=== PATIENT | female | born 1945 | race Caucasian/White ===

== ENCOUNTER 2020-02-28 11:24 | Outpatient (CLI) | payer MEDICARE, SELFPAY ==
--- NOTE | 2020-02-28 11:37 | CT_ITS ---
WS: [id number] CT LUMBAR SPINE, noncontrast. HISTORY: DEGENERATION OF LUMBAR INTERVERTEBRAL DISC TECHNIQUE: Contiguous 2.5 mm axial imaging are performed. Sagittal and coronal reformats are submitte d and reviewed. All CT scans at [facility] use at least one of these dose optimization te chniques: automated exposure control; mA and/or kV adjustment per patient size (includes targeted exa ms where dose is matched to clinical indication); or iterative reconstruction. IV contrast: None DLP: 1945.64 mGycm COMPARISON: 12/22/2011 L4 anterolisthesis by 2.9 mm. L1 compression fracture involving the superior endplate. Concave deformity in the superior endplate h as increased since 2011. There is no retropulsion. No acute fracture line. L1-2: Normal. L2-3: Mild annular disc bulging. Slightly asymmetric to the LEFT. L3-4: Diffuse asymmetric disc bulging to the LEFT. Mild encroachment upon the LEFT lateral thecal sac and foramen. No significant stenosis. L4-5: Moderate asymmetric disc bulging with deformity on the ventral thecal sac. Mild central and sub articular recess stenosis. Minimal narrowing of the RIGHT foramen. L5-S1: Central broad-based disc bulging without stenosis. Scattered calcifications within the abdominal aorta. Degenerative air in the SI joints bilaterally. CT/CT lumbar spine wo con* [id number] IMPRESSION: 1. L1 compression fracture near 50%. Mild progression of the compression fract ure since 2011. No retropulsion. 2. L4 anterolisthesis by 2.9 mm due to degenerative facet arthritis. 3. Mild central and subarticular recess stenosis at L4-5. 4. Mild asymmetric disc bulging at L2-3 and L3-4 to the LEFT.
--- NOTE | 2020-02-28 11:37 | CT_ITS ---
WS: [id number] CT THORACIC SPINE, noncontrast HISTORY: COMPRESSION FRACTURE TECHNIQUE: Contiguous 2.5 mm axial images are reviewed to thoracic spine. Images are reformatted in s agittal and coronal planes. All CT scans at [facility] use at least one of these dose opt imization techniques: automated exposure control; mA and/or kV adjustment per patient size (includes targeted exams where dose is matched to clinical indication); or iterative reconstruction. DLP: 885.14 mGycm COMPARISON: 12/22/2011 Normal posterior thoracic alignment. Chronic compression fracture at T11 approximately 20%. New mild compression deformities at T4 and T7. Anterior compression deformities by approximately 10%. T1-2: Normal. T2-3: Normal. T3-4: Normal. T4-5: Normal. T5-6: Normal. T6-7: Normal. T7-8: Normal. T8-9: Normal. T9-10: Normal. T10-11: Normal. T11-12: Normal. No significant disc protrusions or foraminal stenosis. CT/CT thoracic spin wo con* [id number] IMPRESSION: 1. No central or foraminal stenosis. 2. Remote T11 compression fracture 20%. 3. New since 2011 are mild anterior compression deformities at T4 and T7, age indeterminant. Approximately 10% compression fractures.
== END 2020-02-28 11:25 | disposition home or self-care (01) ==
LOC: RADWPI 11:34
PROVIDERS: Family Provider Family Medicine; PCP Family Medicine; Visit Provider Family Medicine
DX: M51.36 Other intervertebral disc degeneration, lumbar region (principal); S22.080A Wedge compression fracture of T11-T12 vertebra, initial encounter for closed fracture; M51.26 Other intervertebral disc displacement, lumbar region; M48.061 Spinal stenosis, lumbar region without neurogenic claudication; X58.XXXA Exposure to other specified factors, initial encounter
CPT/HCPCS: 72128; 72131

== ENCOUNTER 2020-04-12 07:40 | Outpatient (CLI) | payer MEDICARE, SELFPAY ==
--- NOTE | 2020-04-12 08:24 | XR_ITS ---
WS: [id number] RIGHT HIP HISTORY: PAIN IN RIGHT HIP COMPARISON: None available. Right hip: No acute fracture or dislocation. There are mild osteophytic ridging and joint space narro wing of the RIGHT hip. Inferior RIGHT SI joint is slightly narrowed. XR/XR hip RT 2-3V wo/w pel* [id number] IMPRESSION: 1. No hip fracture. 2. Mild RIGHT hip joint osteoarthritis.
--- NOTE | 2020-04-12 08:24 | XR_ITS ---
WS: [id number] RIGHT TIBIA-FIBULA 2 VIEWS HISTORY: PAIN IN RIGHT LEG COMPARISON: None available. Plate and screw fixation of the distal tibia and fibula. Hardware is intact. No lucency around the sc rews. Moderate narrowing of the tibiotalar joint space XR/XR tibia fibula RT 2V [id number] IMPRESSION: 1. ORIF distal tibia and fibula. No acute fracture. 2. Moderate degenerative osteoarthritis at the tibiotalar joint space.
--- NOTE | 2020-04-12 08:24 | XR_ITS ---
WS: [id number] LUMBAR SPINE: 3 VIEWS TECHNIQUE: AP, lateral and L5-S1 spot. HISTORY: LOW BACK PAIN COMPARISON: 02/28/2020 Compression fracture of L1 by 20% is stable. L4 anterolisthesis by 5 mm. Facet joint arthritis is mod erate at L4-5 and L5-S1. Disc spaces are well preserved. Mild bilateral SI joint narrowing. XR/XR lumbar spine 2-3V* [id number] IMPRESSION: 1. Stable L1 compression fracture by 20% since 02/28/2020. 2. L4 anterolisthesis by 5 mm.
== END 2020-04-12 07:41 | disposition home or self-care (01) ==
PROVIDERS: Family Provider Family Medicine; PCP Family Medicine; Visit Provider Nurse Practitioner
DX: M79.604 Pain in right leg (principal); M54.5 Low back pain; M19.09 Primary osteoarthritis, other specified site; S32.010A Wedge compression fracture of first lumbar vertebra, initial encounter for closed fracture; X58.XXXA Exposure to other specified factors, initial encounter; M16.11 Unilateral primary osteoarthritis, right hip
CPT/HCPCS: 72100; 73502; 73590

== ENCOUNTER 2020-07-13 18:09 | Observation (INO) | payer MEDICARE, OTHER, SELFPAY ==
[2020-07-13] VITALS (11 sets, daily range): BP systolic 127–171; BP diastolic 65–102; PULSE 70–90; RESP 12–18; TEMP 36.9; O2SAT 95–100; BMI 22.7
--- NOTE | 2020-07-13 18:26 | ED_ITS ---
HPI - Chest Pain General: Chief Complaint: Chest Pain Stated Complaint: Chest Pain/Numbness & Pain in Left Arm/Neck Time Seen by Provider: 07/13/20 18:21 Source: patient Mode of arrival: ambulatory Limitations: no limitations History of Present Illness: HPI narrative: 75-year-old female states she had chest pain in her left chest that started today. Patient states pain is sharp in nature and rates it a 6 out of 10. She states she has had some tingling in her left arm along with pain that radiates to the arm. complaint: chest pain Onset (ago): hour(s) Timing of current episode: episodic Prior episodes: No Onset: during rest Pain location: left chest Pain radiation: left arm Severity: moderate Quality: aching Relieving factors: nothing Exacerbating factors: nothing Associated symptoms: Deny abdominal pain, dyspnea, fever(s), nausea or vomiting Review of Systems Const: Denies: fever(s), chills, body aches or change in appetite Eyes: Denies: blurry vision or eye discomfort ENMT: Denies: throat pain or dental pain Card: Denies: chest pain Resp: Denies: dyspnea GI: Denies: abdominal pain, nausea, vomiting or diarrhea : Denies: dysuria Musc: Denies: neck pain or back pain Skin/Breast: Denies: rash Neuro: Denies: headache(s) Psych: Denies: depression Matteo/Lymph: Denies: easy bruising All/Imm: Denies: urticaria PFSH ED PFSH: Medical History (Updated 07/13/20 @ 20:29 by Geneva García MD) Depression Diabetes Hypertension Surgical History (Updated 07/13/20 @ 20:12 by Karen Guevara MD) S/P right knee arthroscopy Physical Exam Const: COMMON NORMALS: no acute distress, patient oriented x3 and healthy appearing HENMT: COMMON NORMALS: normocephalic and atraumatic HEAD & SCALP: normocephalic and atraumatic Eye: COMMON NORMALS: Equal, round and reactive pupils present and EOMs intact bilaterally PUPIL: Yes Equal, round and reactive pupils present Neck/C-Spine: COMMON NORMALS: full ROM and supple Chest: COMMONS NORMALS: normal inspection of the chest and normal palpation of entire chest wall Resp: COMMON NORMALS: normal respiratory effort, No retractions, No use of accessory muscles and clear to auscultation bilaterally AUSCULTATION: clear to auscultation bilaterally Cardio: COMMON NORMALS: regular rate, regular rhythm and No murmurs present (Cardio) RATE: regular rate RHYTHM: regular rhythm GI: COMMON NORMALS: Normal to inspection, nondistended, normoactive bowel sounds present, Soft to palpation, non-tender and no masses PALPATION: Yes Soft to palpation Extremity: COMMON NORMALS: normal to inspection and full ROM Neuro: COMMON NORMALS: patient oriented x3, moves all extremities and no focal motor deficits Psych: COMMON NORMALS: mental status grossly normal, Normal thought process present and cooperative THOUGHT PROCESS: Normal thought process present Skin: COMMON NORMALS: no rashes or lesions noted and no wounds GENERAL SKIN EXAM: no rashes or lesions noted Course Vital Signs: Vital signs: Vital Signs Pulse Rate 79 07/13/20 20:04 Respiratory Rate 17 07/13/20 20:04 Blood Pressure 139/70 07/13/20 20:04 Pulse Oximetry 97 07/13/20 20:04 MDM - Chest Pain MDM Narrative: Medical decision making narrative: Patient presents here with chest pain. Her initial troponin and EKG are both normal. Her pain is typical though and she does have a history of hyperglycemia and high blood pressure I spoke to her at length and will admit her for observation due to her risk factors. She has no signs of pulmonary embolism or aortic dissection. Lab Data: Labs: Lab Results 07/13/20 07/13/20 07/13/20 Range/Units 18:30 18:30 18:36 WBC 8.3 (4.0-10.0) 10^3/ uL RBC 3.96 L (4.1-5.3) 10^6/u L Hgb 12.3 (11.5-15.3) g/dL Hct 37.0 (37.0-47.0) % MCV 93.4 (81-99) fL MCH 31.1 (28.0-34.0) pg MCHC 33.2 (30.0-36.0) g/dL RDW 11.4 L (12.1-15.1) % Plt Count 238 (130-400) 10^3/c mm MPV 9.4 (7.4-10.4) fL Neut % (Auto) 31.7 % Lymph % (Auto) 61.4 % [place] % (Auto) 4.5 % Eos % (Auto) 1.7 % Baso % (Auto) 0.6 % Neut # (Auto) 2.63 (1.8-7.7) 10^3/u L Lymph # (Auto) 5.1 H (0.8-4.8) 10^3/u L [place] # (Auto) 0.4 (0.2-0.9) 10^3/u L Eos # (Auto) 0.1 (0.0-0.8) 10^3/u L Baso # (Auto) 0.1 (0.0-0.1) 10^3/u L Nucleated RBC % (a uto) 0 % Nucleated RBCs # 0.0 /100WBC Sodium 141 (136-145) mmol/L Potassium 4.4 (3.5-5.1) mmol/L Chloride 105 (98-107) mmol/L Carbon Dioxide 25 (22-29) mmol/L Anion Gap 15.4 (5-19) BUN 24 H (8-23) mg/dL Creatinine 1.0 H (0.5-0.9) mg/dL GFR Calculation Not Reportable Glucose 131 H (65-115) mg/dL Calculated Osmolal ity 298 H (285-295) mOsm/k g Calcium 9.2 (8.5-10.5) mg/dL Total Bilirubin 0.4 (0.15-1.2) mg/dL AST 14 (0-32) U/L ALT 20 (0-33) U/L Alkaline Phosphata se 75 (35-105) IU/L Troponin T Baselin e 6 (0-10) ng/L Total Protein 7.1 (6.6-8.7) g/dL Albumin 4.2 (3.5-5.2) g/dL Globulin 2.9 (1.3-4.6) g/dL Imaging Data^: CXR: Attestation: I personally reviewed and interpreted this imaging study as follows: My impression: no acute abnormality EKG Data^: EKG 1: Attestation: I personally reviewed and interpreted this EKG as follows: EKG interpretation date: 07/13/20 EKG interpretation time: 18:18 Interpretation: nsr hr [address] or t wave abnormalities qrs 86 qtc 380 Discharge Plan Discharge Patient Disposition: Admitted As Inpatient Clinical Impression: Chest pain Qualifiers: Chest pain type: unspecified Qualified Code(s): R07.9 - Chest pain, unspecified Condition: Stable Coding Level of Care Code ED 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
--- NOTE | 2020-07-13 18:35 | XRR_ITS ---
PROCEDURE INFORMATION: Exam: XR Chest, 1 View Exam date and time: 07/13/2020 6:37 PM Age: 75 years old Clinical indication: Chest pain; Additional info: Cp TECHNIQUE: Imaging protocol: XR of the chest Views: 1 view. COMPARISON: No relevant prior studies available. FINDINGS: Lungs: Unremarkable. No consolidation. Pleural space: Unremarkable. No pleural effusion. No pneumothorax. Heart/Mediastinum: Unremarkable. No cardiomegaly. Bones/joints: Unremarkable. XR/XR chest 1V portable [id number] IMPRESSION: No acute findings.
[2020-07-13 18:50] LABS: Basophils # 0.1 10^3/uL (0.0-0.1); Basophils % 0.6 %; Eosinophils # 0.1 10^3/uL (0.0-0.8); Eosinophils % 1.7 %; Hemoglobin 12.3 g/dL (11.5-15.3); Lymphocytes # 5.1 10^3/uL (0.8-4.8); Lymphocytes % 61.4 %; Mean Corpuscular HGB Conc 33.2 g/dL (30.0-36.0); Mean Corpuscular Hemoglobin 31.1 pg (28.0-34.0); Mean Corpuscular Volume 93.4 fL (81-99); Mean Platelet Volume 9.4 fL (7.4-10.4); Monocytes # 0.4 10^3/uL (0.2-0.9); Monocytes % 4.5 %; Neutrophils # 2.63 10^3/uL (1.8-7.7); Neutrophils % 31.7 %; Nucleated Red Blood Cells % 0 %; Platelet Count 238 10^3/cmm (130-400); Red Blood Count 3.96 10^6/uL (4.1-5.3); Red Cell Distribution Width 11.4 % (12.1-15.1); White Blood Count 8.3 10^3/uL (4.0-10.0)
[2020-07-13 19:01] LABS: Alanine Aminotransferase 20 U/L (0-33); Albumin Level 4.2 g/dL (3.5-5.2); Alkaline Phosphatase 75 IU/L (35-105); Anion Gap 15.4 (5-19); Aspartate Amino Transferase 14 U/L (0-32); Blood Urea Nitrogen 24 mg/dL (8-23); Calcium 9.2 mg/dL (8.5-10.5); Carbon Dioxide 25 mmol/L (22-29); Chloride 105 mmol/L (98-107); Globulin 2.9 g/dL (1.3-4.6); Glucose 131 mg/dL (65-115); Osmolality Calculated 298 mOsm/kg (285-295); Potassium 4.4 mmol/L (3.5-5.1); Sodium 141 mmol/L (136-145); Total Bilirubin 0.4 mg/dL (0.15-1.2); Total Protein 7.1 g/dL (6.6-8.7)
[2020-07-13 19:24] LABS: Troponin(5th) Baseline 6 ng/L (0-10)
[2020-07-13] MEDS: morphine 4 mg/mL SDV 1 mL IVP (20:02)
[2020-07-13] MEDS: ondansetron 2 mg/ML SDV 2 mL 4 MG IVP (20:02)
--- NOTE | 2020-07-13 20:09 | P.HP_ITS ---
Providers/Chief Complaint Primary Care Provider: Zbigniew Hernandez Chief Complaint: Chest Pain/Numbness & Pain in Left Arm/Neck History of Present Illness Jennifer Hughes is a 75 year old female who does not have significant coronary disease or TX history presented today with chief complaint of chest pain. Patient is stating that she was moving stove today when she started experiencing some discomfort on the left side of her chest, she took Flexeril and kept doing her work. Around 6:54 PM she started experiencing stabbing pain which was intermittent, it would last only few seconds, it would get worse on any kind of movement, it was reproducible, this pain was radiating towards her jaw and left arm and she also noticed some tingling of left hand. She did not notice any diaphoresis, vomiting, nausea. This pain does not aggravate on laying flat nor improves on leaning forward, does not go towards her shoulder blades. No recent fever, cough, shortness of breath. Diagnostics in the ER revealed normal hemodynamics, troponin not significantly high, chest x-ray unremarkable, no findings of TX on EKG, patient was symptom free at the time my evaluation with normal hemodynamics, Patient does have history of arthritis, chest pain was reproducible during my evaluation, she is able to pinpoint area of chest discomfort as well. Review of Systems Const: Reports: fatigue; Denies: fever(s), chills or body aches Eyes: Denies: change in vision ENMT: Denies: throat pain Card: Reports: chest pain; Denies: irregular heart rhythm, swelling of feet/ankles, pre-syncope, dyspnea on exertion or orthopnea Resp: Denies: dyspnea GI: Denies: abdominal pain : Denies: flank pain Musc: Denies: neck pain Skin/Breast: Denies: rash or pruritus Neuro: Denies: headache(s) Psych: Reports: anxiety and depression Endo: Denies: polyuria Matteo/Lymph: Denies: easy bruising All/Imm: Denies: urticaria Medications/Allergies Home Medications Medication Instructions Recorded Confirmed Last Taken Type BuSpar 1 tab PO DAILY@0700 07/13/20 07/13/20 07/13/20 History bupropion HCl 1 tab PO DAILY@0700 07/13/20 07/13/20 07/13/20 History meloxicam 1 tab PO DAILY@0700 01/07/13/20 07/13/20 History metformin 1,000 mg PO BID@0700,2100 07/13/20 07/13/20 07/13/20 History olmesartan 1 tab PO DAILY@0700 07/13/20 07/13/20 07/13/20 History oxycodone-acetaminophen 1 tab PO Q8H PRN 07/13/20 07/13/20 Unknown History thyroid 1 tab PO DAILY@0700 07/13/20 07/13/20 07/13/20 History Allergies Allergy/AdvReac Type Severity Reaction Status Date / Time levofloxacin [From Levaquin] Allergy ALGY-Hives Verified 07/13/20 18:25 iodine contrast media Allergy ALGY-Redness Uncoded 07/13/20 18:25 of Skin PFSH Acute PFSH: Medical History Depression Diabetes Hypertension Subarachnoid hemorrhage In remote past secondary to hypertensive urgency during air travel Surgical History H/O: hysterectomy History of carpal tunnel surgery History of open reduction and internal fixation (ORIF) procedure Right ankle History of tonsillectomy Hx of adenoidectomy S/P right knee arthroscopy Family History Other Family history non-contributory Social History Smoking and tobacco status: never smoked Substance/Drug Use: never Household members: spouse Housing: House Current occupational status: retired 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 Vitals/I&O/Wt Last Vital Signs Pulse 79 07/13/20 20:04 Resp 17 07/13/20 20:04 BP 139/70 07/13/20 20:04 Pulse Ox 97 07/13/20 20:04 Weight last 48 hrs Weight 65.771 kg Physical Exam Narrative: EXAM NARRATIVE: Very pleasant elderly female Laying comfortable in her bed when I entered the room Symptom-free Hemodynamically stable Saturating well on room air Appears stated age Patient looks dehydrated or fluid overloaded S1, S2 sinus rhythm no heart murmur appreciated No acute respite distress Abdomen soft nontender bowel sounds present No extremity no edema gangrene ulcer Multiple skin tattoos Surgical scar noticed on the right ankle Neurologically nonfocal deficit GCS 15 Awake alert oriented x3 Appropriate mood and affect Chest pain is reproducible Data : 07/13/20 18:30 07/13/20 18:30 A&P Assessment and plan (1) Atypical chest pain: Atypical chest pain Patient symptoms started after recent activity when she was moving a stove in her home, she also took Flexeril, has history of arthritis, EKG did not show significant changes, troponin not significantly high patient is symptom-free at the time of my evaluation, I would request echo in the morning to rule out wall motion abnormality, if that does not show any pathological findings most likely her pain is secondary to costochondritis versus muscle sprain due to recent activity Considering her history of hypertension, diabetes I have counseled her to get outpatient stress test as well Would request lipid panel, TSH Status: Acute Additional A&P Information DVT prophylaxis Lovenox Cardiac diet Type 2 diabetes: Insulin moderate sliding scale Costochondritis: We will give her 1 dose of ketorolac Hypothyroidism: Check TSH, continue home regimen of levothyroxine Full code Attestations Medical Necessity Statement*: Anticipating discharge in less than 48 hours she needs overnight monitoring because of her risk factors for coronary disease will request echo in the morning, need serial troponin and EKG Time Spent in Patient Care: (>than 50% of time spent in counselling and/or direct pt care on unit) . 45mins Coding Level of Care Code Acute Fishing Accessories Maker for Chg Fwd Diagnoses Atypical chest pain R07.89
--- NOTE | 2020-07-13 20:36 | ECG_ITS ---
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
[2020-07-13 20:56] LABS: Troponin 5 2HR Delta 0 ABS# (0-10)
[2020-07-13 21:05] LABS: D Dimer 1.74 ug/mIFEU (0-0.59)
[2020-07-13 23:16] LABS: Chol HDL Ratio 4.51 mg/dL (0.0-4.40); Cholesterol 185 mg/dL (0-200); HDL Cholesterol 41 mg/dL (60-100); LDL Cholesterol Calculated 88 mg/dL (50-129); LDL HDL Ratio 2.15 RATIO (0.00-3.22); Thyroid Stimulating Hormone 1.19 uIU/mL (0.27-4.20); Triglycerides 278 mg/dL (0-150)
[2020-07-14] VITALS (22 sets, daily range): BP systolic 116–164; BP diastolic 59–79; PULSE 68–79; RESP 12–27; TEMP 35.7–36.6; O2SAT 94–98
[2020-07-14] MEDS: ketorolac 30 mg/mL INJ 15 MG IVP (01:22)
[2020-07-14] MEDS: enoxaparin 40 mg/0.4 mL Syringe SUBCUT (01:23)
[2020-07-14] MEDS: oxyCODONE-APAP 10-325 mg Tablet 1 TAB PO (02:05)
[2020-07-14 02:46] LABS: Troponin 5 6HR Delta 0 ng/L (0-12)
--- NOTE | 2020-07-14 06:20 | PC.NURSE ---
Attempted to call patient's - Ambros and get dosage information for patient's Olmesartan and Thyroid pills as patient does not remember. Voicemail left to return a call to the Cardiac Stepdown Unit.
--- NOTE | 2020-07-14 06:50 | PC.NURSE ---
Report to Meghan Sosa RN.
--- NOTE | 2020-07-14 09:45 | NMR_ITS ---
PROCEDURE INFORMATION: Exam: IA Lung Ventilation and Perfusion Imaging Exam date and time: 07/14/2020 10:25 AM Age: 75 years old Clinical indication: Pain; Other: Under left arm radiating to neck; Patient HX: Abnormal d-dimer, contrast allergy; Additional info: Chest pain, abnormal ddimer, contrast allergy TECHNIQUE: Imaging protocol: Nuclear pulmonary ventilation with aerosol or gas was performed followed by perfusion. Views: Ventilation acquired with multiple projections. Perfusion acquired with multiple projections. Radiopharmaceutical: 5.1 mCi Tc-99m MAA (Macroaggregated Albumin), IV. 30.2 mCi Xe-133 (Xenon Gas), Inhalation. COMPARISON: CR XR chest 1V portable [id number] 07/13/2020 6:37 PM FINDINGS: Ventilation: Normal. No ventilation defects. Perfusion: Normal. No perfusion defects. IA/IA pul vent and perfus* [id number] IMPRESSION: Normal perfusion. No evidence of pulmonary embolism.
--- NOTE | 2020-07-14 20:36 | PM.DCS ---
Discharge Providers Date of Admission: 07/13/20 20:27 Date of Discharge: July 14, 2020 Attending Provider at Admission: Karen Guevara MD Attending Provider at Discharge: Tyrese Mckeon Primary Care Provider: Zbigniew Hernandez Diagnoses at Discharge Discharge Diagnosis (1) Atypical chest pain: Status: Acute Reason for Visit Reason for Visit: Chest Pain/Numbness & Pain in Left Arm/Neck Hospital Course Hospital Course Very pleasant 75-year-old lady with history of diabetes, HTN, remote history of subarachnoid hemorrhage secondary to hypertensive urgency during air travel was placed in observation after episode of left-sided chest pain, sharp/stabbing, worsened by movement, radiating to the jaw, left arm, some tingling in the left hand. It appears that this started after she had moved a stove. She was assessed with EKG and serial troponins which were not suggestive of acute [place]. Chest x-ray was unremarkable. She was monitored on cardiac stepdown unit. Echocardiogram was obtained which showed normal ejection fraction, grade 1 diastolic dysfunction. D-dimer was abnormal. She was assessed by VQ scan which showed normal perfusion no evidence of PE. Her pain had resolved, with just occasional mild discomfort with moving her arm. Most likely musculoskeletal, however, she is encouraged to follow-up with her primary care provider, and in case of return of nonreproducible severe chest pain to seek medical attention. By ASCVD she would benefit from statin therapy, and this is provided for her. Please review in office. Continue optimization of other risk factors of coronary disease. Physical Exam Const: COMMON NORMALS: no acute distress and patient oriented x3 OTHER: At the time of my visit she is feeling well. Pain had resolved. She is in good spirits. She is looking forward to returning home later today. HENMT: COMMON NORMALS: oropharynx normal Neck/C-Spine: COMMON NORMALS: no JVD Resp: COMMON NORMALS: normal respiratory effort and clear to auscultation bilaterally AUSCULTATION: clear to auscultation bilaterally Cardio: COMMON NORMALS: no JVD, regular rhythm, S1 normal heart sound present, S2 normal heart sound present and No murmurs present (Cardio) RHYTHM: regular rhythm HEART SOUNDS: S1 normal heart sound present and S2 normal heart sound present GI: COMMON NORMALS: Normal to inspection, nondistended, normoactive bowel sounds present, Soft to palpation and non-tender PALPATION: Yes Soft to palpation Extremity: COMMON NORMALS: no joint enlargement and no pedal edema Neuro: COMMON NORMALS: patient oriented x3 and moves all extremities Skin: COMMON NORMALS: no rashes or lesions noted GENERAL SKIN EXAM: no rashes or lesions noted Discharge Data Data Completed and Pending: Completed Studies During Hospitalization Category Date Time Status XR chest 1V vijay ble [id number] Stat Exams 07/13/20 18:35 Completed NM pul vent and p erfus* [id number] Stat Nuc Med 07/14/20 09:45 Completed CV echo complete* [id number] Routine Ultrasound 07/14/20 22:38 Completed Labs from last 24 hours 07/14/20 07/13/20 07/13/20 02:22 20:30 18:30 D-Dimer Troponin T 120 Min [place] 6.00 Delta Troponin T 0 Troponin T Hi Sens 6Hr 6.00 Troponin T Hi Sens 6Hr Delta 0 Triglycerides 278 H Cholesterol 185 LDL Cholesterol, C alc 88 HDL Cholesterol 41 L LDL/HDL Ratio 2.15 Cholesterol/HDL Ra krys 4.51 H TSH 1.19 07/13/20 18:30 D-Dimer 1.74 H Troponin T 120 Min [place] Delta Troponin T Troponin T Hi Sens 6Hr Troponin T Hi Sens 6Hr Delta Triglycerides Cholesterol LDL Cholesterol, C alc HDL Cholesterol LDL/HDL Ratio Cholesterol/HDL Ra krys TSH Vitals: Last Vital Signs Temp 96.2 F L 07/14/20 16:05 Pulse 72 07/14/20 16:05 Resp 12 07/14/20 16:05 BP 133/66 07/14/20 16:05 Pulse Ox 98 07/14/20 16:05 Discharge Plan Discharge Patient Disposition: Home Condition: Stable Prescriptions: New atorvastatin 40 mg tablet 40 mg PO DAILY Qty: 30 RF: 0 Continued oxycodone-acetaminophen 7.5-325 mg tablet 1 tab PO Q8H PRN (Reason: Pain) RF: 0 cyclobenzaprine 10 mg Tablet 10 mg PO TID PRN (Reason: Muscle Spasm) RF: 0 Mobic 15 mg Tablet 15 mg PO DAILY RF: 0 cyanocobalamin (vitamin B-12) 1,000 mcg Tablet 1,000 mcg PO DAILY RF: 0 metformin 1,000 mg Tablet 1,000 mg PO BID RF: 0 diclofenac sodium 50 mg Tablet,Delayed Release (Dr/Ec) 50 mg PO DAILY RF: 0 thyroid 60 mg Tablet 60 mg PO RF: 0 buspirone 15 mg Tablet 15 mg PO BID RF: 0 olmesartan 20 mg Tablet 20 mg PO DAILY RF: 0 Wellbutrin XL 300 mg Tablet Extended Release 24 Hr 300 mg PO QAM RF: 0 Discharge Orders: Discharge Order (Routine); Ordered 07/14/20 Ordered By: Tyrese Mckeon Referrals: Zbigniew Hernandez MD [Primary Care Provider] - 4-7 days ([facility] will contact you to schedule an follow-up in 4 to 7 days. If you haven't heard from them by Mondaafternoon. Please call ) Discharge Diet: Diabetic Discharge Activity: Increase activity as tolerated Patient Instructions: Diclofenac (By mouth), Atorvastatin (By mouth), Meloxicam (By mouth), Chest Pain Stoplight Activity Restrictions/Additional Instructions: Please use conservative measures for pain control which at this time is felt to be musculoskeletal most likely, use Tylenol if needed, gentle massage, topical ointment like icy hot, capsaicin cream or BenGay, warm or cold compresses. If experiencing unresolving chest pain which is not related to movement or activity, please seek medical attention. Please be cautious to use medications like meloxicam, diclofenac or other NSAIDs for a long time. Please do not use meloxicam and diclofenac together due to high risk of adverse effects including kidney injury and other. Due to minimally abnormal renal function, creatinine 1, BUN 24, if possible please avoid NSAIDs altogether. Please have your primary care doctor follow-up on your renal function. Please also discuss with your primary care doctor regarding incidentally noted elevated D-dimer. Please note that VQ scan showed normal perfusion without evidence of pulmonary thrombus. Please note also that you would benefit from initiation of cholesterol medication to your reduce cardiovascular risk. Prescription is given for you for atorvastatin. Please discuss further with your primary care doctor. Discharge Attestations Time Spent in Discharge Care*: greater than 30 min Quality Metrics Clinical Quality Measures During this hospital stay, did patient experience: None Coding Level of Care Code Acute Electronic Design Engineer for Megan Arroyo Diagnoses Atypical chest pain R07.89
--- NOTE | 2020-07-14 22:38 | USCV_ITS ---
Jennifer Hughes Age: 75 Gender: F : 1945 Exam Date: 07/14/2020 12:17 Ordering Phys: Karen Guevara MD Technologist: Michael Muro [place] [facility] [place]: ANGINA BP: 135 / 79 HR: 74 Rhythm: Sinus Technical Quality: Fair MEASUREMENTS (Male / Female) Normal Values 2D ECHO LV Diastolic Diameter PLAX 3.4 cm 4.2 - 5.9 / 3.9 - 5.3 cm LV Systolic Diameter PLAX 1.9 cm IVS Diastolic Thickness 0.8 cm 0.6 - 1.0 / 0.6 - 0.9 cm IVS Systolic Thickness 1.1 cm LVPW Diastolic Thickness 1.0 cm 0.6 - 1.0 / 0.6 - 0.9 cm LVPW Systolic Thickness 1.2 cm LVOT Diameter 2.0 cm LV Ejection Fraction 2D Teich 74.6 % LV Ejection Fraction MOD 2C 72.2 % LV Ejection Fraction 2C AL 71.6 % LA Diameter 3.6 cm LA Width 3.5 cm LA Height 4.7 cm RA Width 3.3 cm RA Height 4.3 cm M-MODE LV Diastolic Diameter MM 4.2 cm 4.2 - 5.9 / 3.9 - 5.3 cm LV Systolic Diameter MM 2.8 cm LV Ejection Fraction MM Teich 62.1 % IVS Diastolic Thickness MM 0.9 cm 0.6 - 1.0 / 0.6 - 0.9 cm IVS Systolic Thickness MM 1.2 cm LVPW Diastolic Thickness MM 1.2 cm 0.6 - 1.0 / 0.6 - 0.9 cm LVPW Systolic Thickness MM 1.5 cm RV Diastolic Diameter MM 1.3 cm Aortic Annulus Diameter 3.1 cm LA Ao Ratio MM 1.2 MV E Point Septal Separation 1.1 cm DOPPLER AV Peak Velocity 131.0 cm/s LVOT Peak Velocity 84.0 cm/s AV Area Cont Eq vti 2.5 cm squared AV Area Cont Eq pk 2.1 cm squared MV Area PHT 5.0 cm squared Mitral E to A Ratio 0.7 MV E' Velocity 33.0 cm/s Mitral E to MV E' Ratio 8.1 Mitral E to LV E' Lateral Ratio 6.9 Mitral E to LV E' Septal Ratio 10.1 TR Peak Velocity 177.3 cm/s TR Peak Gradient 12.6 mmHg TV Peak E Velocity 61.0 cm/s Right Atrial Pressure 3.0 mmHg Pulmonary Artery Systolic Pressu 15.6 mmHg PV Peak Velocity 105.0 cm/s FINDINGS Left Ventricle Normal left ventricular cavity size. Normal left ventricular systolic function. No regional wall motion abnormalities. Left ventricular ejection fraction is estimated at 65 %. Grade I/IV diastolic dysfunction (abnormal relaxation filling pattern), normal to mildly elevated filling pressures. Right Ventricle The right ventricle is normal in size and function. Right Atrium The right atrium is normal in size. Left Atrium The left atrium is normal in size. Mitral Valve Structurally normal mitral valve without significant stenosis or prolapse. There is no mitral regurgitation. Aortic Valve Structurally normal aortic valve without significant sclerosis or stenosis. There is no aortic regurgitation. Tricuspid Valve Structurally normal tricuspid valve without significant stenosis or regurgitation. Pulmonary artery systolic pressure is normal. Pulmonic Valve Structurally normal pulmonic valve without significant stenosis. There is no pulmonic regurgitation. Pericardium Normal pericardium without effusion. Aorta Normal ascending aorta dimension. CONCLUSIONS 1-Normal left ventricular cavity size. Normal left ventricular systolic function. No regional wall motion abnormalities. Left ventricular ejection fraction is estimated at 65 %. Grade I/IV diastolic dysfunction (abnormal relaxation filling pattern), normal to mildly elevated filling pressures. 2-No significant valve abnormalities. 3-There is no pericardial effusion. 4-Pulmonary artery systolic pressure is within normal limits. 5-Right atrial pressure is around 5 mm of mercury. 6-There are no prior echocardiogram studies to compare. Karen Esquivel MD (Electronically Signed) Final Date: 14 July 2020 16:16 S
== END 2020-07-14 17:13 | disposition home or self-care (01) ==
LOC: ER 20:29 → CSU 20:36
PROVIDERS: Admitting Provider Internal Medicine; Emergency Provider Emergency Medicine; PCP Family Medicine; Visit Provider Internal Medicine
DX: R07.89 Other chest pain (principal); I25.10 Atherosclerotic heart disease of native coronary artery without angina pectoris; I25.2 Old myocardial infarction; E11.9 Type 2 diabetes mellitus without complications; I10 Essential (primary) hypertension; Z79.84 Long term (current) use of oral hypoglycemic drugs; F32.9 Major depressive disorder, single episode, unspecified; E03.9 Hypothyroidism, unspecified; M94.0 Chondrocostal junction syndrome [Tietze]
CPT/HCPCS: 12345; 36415; 71045; 78014; 80053; 80061; 84443; 84484; 85025; 85378; 93005; 93306; 96374; 96375; 99282; 99285; A9540; A9567; G0378; J1650; J1885; J2270; J2405

== ENCOUNTER → 2021-05-20 09:21 | Outpatient (BNVA) | payer MEDICARE, OTHER, SELFPAY | PROVIDERS: PCP Family Medicine; Visit Provider Nurse Practitioner Family | DX: N39.0 Urinary tract infection, site not specified (principal) | CPT/HCPCS: 81003; 87086 ==

== ENCOUNTER 2021-06-19 07:27 | Outpatient (CLI) | payer MEDICARE, OTHER, SELFPAY ==
--- NOTE | 2021-06-19 07:30 | XR_ITS ---
WS: [id number] K[facility], AP view, 06/19/2021 Clinical Data: HX OF KIDNEY STONES Comparison: None. Findings: No abnormal intraabdominal masses or calcifications are seen. There is no dilatated small bowel or ev idence of obstruction. There is a large amount of fecal material throughout the colon. There are splenic granulomas. XR/XR KUB [id number] Impression: Negative KUB.
== END 2021-06-19 07:28 | disposition home or self-care (01) ==
PROVIDERS: PCP Family Medicine; Visit Provider Urology
DX: Z87.442 Personal history of urinary calculi (principal); N39.0 Urinary tract infection, site not specified
CPT/HCPCS: 74018; 81003

== ENCOUNTER → 2021-08-20 07:54 | Outpatient (BNVA) | payer MEDICARE, OTHER, SELFPAY | PROVIDERS: PCP Family Medicine; Visit Provider Urology | DX: N39.0 Urinary tract infection, site not specified (principal) | CPT/HCPCS: 81003 ==